=== PATIENT | female | born 1985 ===

== ENCOUNTER 2021-03-22 14:08 | Outpatient (REF) | payer OTHER, SELFPAY | END 2021-03-22 14:09 | disposition home or self-care (01) | LOC: HO.LNP 14:08 | PROVIDERS: Visit Provider Hospitalist | DX: Z20.822 Contact with and (suspected) exposure to COVID-19 (principal); J06.9 Acute upper respiratory infection, unspecified | CPT/HCPCS: U0003; U0005 ==